=== PATIENT | male | born 1940 | race Caucasian/White ===

== ENCOUNTER 2020-05-01 14:58 | Inpatient (IN) | payer MEDICARE, MEDICAID ==
[~2020-05-01] VITALS: Ht 175.3 cm; Wt 101.6 kg
[2020-05-01 16:58] LABS: HEMATOCRIT. 42.5 % (42.0-52.0); HEMOGLOBIN. 14.2 g/dL (14.0-18.0); MEAN CORPUSCULAR HEMOGLOBIN 32.4 pg (28.0-32.0); MEAN CORPUSCULAR VOLUME 96.6 fL (80.0-94.0); MEAN PLATELET VOLUME 8.6 fl (7.4-10.4); PLATELET 198 x1000/uL (130-400); RED CELL DISTRIBUTION WIDTH 14.1 % (11.6-14.6)
[2020-05-01 17:00] LABS: CHLORIDE 106 mEq/L (98-107)
[2020-05-01 17:04] LABS: ETHANOL BLOOD < 10 mg/dL
[2020-05-01 17:23] LABS: PLATELET ESTIMATE NORMAL
[2020-05-01] MEDS ORDERED: LORAZEPAM 2MG/ML CPJ IM ONE (17:30)
[2020-05-01] MEDS ORDERED: HALOPERIDOL LACTATE 5MG/ML VIAL IM ONE (17:30)
[2020-05-01 23:06] LABS: CLARITY URINE CLEAR (CLEAR); COLOR URINE YELLOW (YELLOW); KETONES URINE TRACE (NEGATIVE); LEUKOCYTE ESTERASE URINE NEGATIVE (NEGATIVE); NITRITE URINE NEGATIVE (NEGATIVE); OCCULT BLOOD URINE NEGATIVE (NEGATIVE); PH URINE 7.5 (4.5-8.0); PROTEIN URINE NEGATIVE (NEGATIVE); SPECIFIC GRAVITY URINE 1.014 (1.005-1.030)
[2020-05-01 23:16] LABS: *AMPHETAMINES SCREEN URINE NEGATIVE (NEGATIVE)
[2020-05-01 23:17] LABS: *BARBITURATES SCREEN URINE NEGATIVE (NEGATIVE); *BENZODIAZEPINES SCREEN URINE NEGATIVE (NEGATIVE); *COCAINE SCREEN URINE NEGATIVE (NEGATIVE); METHADONE URINE SCREEN NEGATIVE (NEGATIVE); OPIATES URINE SCREEN NEGATIVE (NEGATIVE); PHENCYCLIDINE URINE SCREEN NEGATIVE (NEGATIVE)
[2020-05-01 23:18] LABS: CANNABINOID URINE SCREEN NEGATIVE (NEGATIVE)
[2020-05-02] MEDS ORDERED: HALOPERIDOL LACTATE 5MG/ML VIAL IM PRN (09:45)
[2020-05-02] MEDS ORDERED: DIPHENHYDRAMINE 50MG/ML VIAL IV PRN (09:45)
[2020-05-02] MEDS ORDERED: CLONIDINE 0.1MG TABLET PO PRN (09:45)
[2020-05-02] MEDS ORDERED: ONDANSETRON HCL 4MG/2ML INJ IV PRN (09:45)
[2020-05-02 11:30] VITALS: BP 128/79
[2020-05-02] MEDS ORDERED: THIA100T88 MT (11:32)
[2020-05-02] MEDS ORDERED: LORA-250 PO (11:51)
[2020-05-02] MEDS ORDERED: TOPUD MT (11:51)
[2020-05-02] MEDS ORDERED: BISA-81 MT (11:51)
[2020-05-02] MEDS ORDERED: TRAZ-251 MT (11:51)
[2020-05-02] MEDS ORDERED: SERT25TA74 PO (11:51)
[2020-05-02] MEDS ORDERED: MAGN200T5 MT (11:51)
[2020-05-02] MEDS ORDERED: DIVA125T31 MT (11:51)
[2020-05-02] MEDS ORDERED: MELA3TAB40 MT (11:51)
[2020-05-02] MEDS ORDERED: FOLI-43 MT (11:51)
[2020-05-02] MEDS ORDERED: RIVA20TA MT (11:51)
[2020-05-02] MEDS ORDERED: QUET50TA21 PO (11:51)
[2020-05-02] MEDS: RISPERIDONE 1MG TABLET PO SCH (14:04)
[2020-05-02 20:00] VITALS: BP 115/81
[2020-05-03] VITALS: BP 113/70
[2020-05-03 04:00] VITALS: BP 161/82
[2020-05-03] MEDS: RISPERIDONE 1MG TABLET PO SCH ×5 (06:04→21:52)
[2020-05-03 06:51] VITALS: BP 122/77
[2020-05-03 07:46] LABS: CHLORIDE 107 mEq/L (98-107)
[2020-05-03 07:57] LABS: HEMATOCRIT. 33.6 % (42.0-52.0); HEMOGLOBIN. 11.4 g/dL (14.0-18.0); MEAN CORPUSCULAR HEMOGLOBIN 32.5 pg (28.0-32.0); MEAN CORPUSCULAR VOLUME 95.9 fL (80.0-94.0); MEAN PLATELET VOLUME 9.2 fl (7.4-10.4); PLATELET 149 x1000/uL (130-400); RED CELL DISTRIBUTION WIDTH 14.2 % (11.6-14.6)
[2020-05-03 08:08] LABS: LDL CHOLESTEROL 51 mg/dL (5-100)
[2020-05-03 08:09] LABS: HDL CHOLESTEROL 42 mg/dL (40-59)
[2020-05-03 12:00] VITALS: BP 139/88
[2020-05-03 13:49] LABS: PLATELET ESTIMATE NORMAL
[2020-05-03 20:00] VITALS: BP 137/89
[2020-05-04] VITALS: BP 128/79
[2020-05-04 04:00] VITALS: BP 141/84
[2020-05-04 08:00] VITALS: BP 145/95
[2020-05-04] MEDS: RISPERIDONE 1MG TABLET PO SCH ×3 (08:29→21:00)
[2020-05-04 12:00] VITALS: BP 138/88
[2020-05-04 16:00] VITALS: BP 132/88
[2020-05-04 20:00] VITALS: BP 146/98
[2020-05-05] VITALS: BP 125/76
[2020-05-05 04:00] VITALS: BP 142/68
[2020-05-05 08:00] VITALS: BP 128/91
[2020-05-05] MEDS: RISPERIDONE 1MG TABLET PO SCH ×2 (08:34→20:30)
[2020-05-05] MEDS: ACETAMINOPHEN 325MG TABLET PO PRN (11:26)
[2020-05-05 12:00] VITALS: BP 133/82
[2020-05-05 20:00] VITALS: BP 132/89
[2020-05-06] VITALS: BP 144/85
[2020-05-06 04:00] VITALS: BP 114/55
[2020-05-06 08:00] VITALS: BP 117/83
[2020-05-06] MEDS: RISPERIDONE 1MG TABLET PO SCH ×2 (08:47→21:00)
[2020-05-06 12:00] VITALS: BP 128/74
[2020-05-06 16:00] VITALS: BP 110/64
[2020-05-06] MEDS: DIVALPROEX SODIUM 125MG EC TABLET PO SCH (18:45)
[2020-05-06 20:00] VITALS: BP 101/56
[2020-05-06] MEDS ORDERED: TRAZODONE HCL 50MG TABLET PO SCH (21:00)
[2020-05-07] VITALS: BP 145/77
[2020-05-07 04:00] VITALS: BP 114/96
[2020-05-07 08:00] VITALS: BP 151/77
[2020-05-07] MEDS ORDERED: LORAZEPAM 1MG TABLET PO SCH (09:00)
[2020-05-07] MEDS: RISPERIDONE 1MG TABLET PO SCH (09:24)
[2020-05-07] MEDS: DIVALPROEX SODIUM 125MG EC TABLET PO SCH (09:24)
[2020-05-07] MEDS ORDERED: RISP1 PO (11:07)
[2020-05-07] MEDS: ACETAMINOPHEN 325MG TABLET PO PRN (11:50)
[2020-05-07 12:00] VITALS: BP 136/81
[2020-05-07 15:24] VITALS: BP 136/81
== END 2020-05-07 16:06 | DRG 683 ==
LOC: ER 14:58 → 4WST 05-02 09:22 → EDBEDREQ 05-02 09:36 → EDBEDREQTM 05-02 09:36 → ENRESERV 05-02 09:38 → 6EST 05-05 17:17
PROVIDERS: ADMIT Internal Medicine; ATTEND Internal Medicine
DX: I12.9 Hypertensive chronic kidney disease with stage 1 through stage 4 chronic kidney disease, or unspecified chronic kidney disease (principal); N17.9 Acute kidney failure, unspecified; F01.51 Vascular dementia, unspecified severity, with behavioral disturbance; J98.11 Atelectasis; N18.9 Chronic kidney disease, unspecified; Z66 Do not resuscitate; Z20.822 Contact with and (suspected) exposure to COVID-19; Z79.01 Long term (current) use of anticoagulants; Z86.711 Personal history of pulmonary embolism; Z86.718 Personal history of other venous thrombosis and embolism; Z95.828 Presence of other vascular implants and grafts; Z79.899 Other long term (current) drug therapy
CPT/HCPCS: 36415; 71045; 80053; 80061; 80165; 80305; 80307; 80320; 80329; 81003; 84443; 84484; 85025; 87426; 93005; 93970; 99285; J1630; J2060; G0480